=== PATIENT | female | born 1990 | race Asian ===

== ENCOUNTER 2022-11-23 18:35 | Emergency (ER) | payer OTHER ==
--- NOTE | 2022-11-23 22:35 | ED Physician Documentation ---
History of Present Illness - Stated complaint Stated Complaint: INGROWN TOE NAIL - Chief complaint Chief Complaint: General - History obtained from History obtained from: Patient - Additonal information Additional information: HPI from patient. Patient c/o right great toe pain, swelling, redness since yesterday, steadily worsening in severity of pain. Pain is worse with weight-bearing. No ameliorati ng factors. Denies h/o similar symptoms. Denies recent injury. Review of Systems Constitutional: denies: Fever Musculoskeletal: reports: Extremity pain, Extremity swelling, Pain with weight bearing PD PAST MEDICAL HISTORY - Past Medical History Past Medical History: No - Present Medications Home Medications: Ambulatory Orders Medication Instructions Recorded Confirmed HYDROcod/ACETAM 5/325 [[place]ag[place] 5/325] 1 - 2 tablet PO Q6H PRN #14 tablet 11/24/22 clindamycin HCL [Clindamycin HCl] 300 mg PO QID #28 cap 11/24/22 - Allergies Allergies/Adverse Reactions: Allergies Allergy/AdvReac Type Severity Reaction Status Date / Time No Known Drug Allergies Allergy Verified 11/23/22 18:48 PD ED PE NORMAL - Vitals Vital signs reviewed: Yes - General General: Alert and oriented X 3, No acute distress, Well developed/nourished PD ED PE EXPANDED - Extremities Feet visual: 1 - swelling (erythema, swelling, tenderness), tenderness Results - Vitals Vitals: Oxygen O2 Source Room air Procedures - Regional nerve block - Minor Nerve block site: Digital - note digit(s) (right great toe) Right / left: Right Nerve block anesthesia: Lidocaine 1%, Marcaine 0.5%, Other (1:1 mixture) Nerve block aftercare: Excellent anesthesia, Patient tolerated well, No complications PD Medical Decision Making - ED course Complexity details: considered differential, d/w patient ED course: presents with right great toe paronychia with focal swelling and blanching s/o purulence. After digital block (as above, procedure note), the lateral nail fold was able to be elevated away from the nail. I then made small stab-incision into area of fluctuance with #11 blade with scant purulosanguinous return. The distal edge/corner of the nail does not appear to be ingrown and thus no nail excision undertaken (also considering the lateral nail fold is able to be lifted with a plastic curette without difficulty now that the toe is numb). Patient is given clindamycin and e-prescribed one week course of same; also given take-home pack of vicodin and e-prescribed this medication, as well. Departure - Departure Disposition: 01 Home, Self Care Clinical Impression: Paronychia Condition: Good Instructions: ED Toenail Ingrown Infec Abx Onl, ED Fingernail Infec Prescriptions: clindamycin HCL [Clindamycin HCl] 300 mg PO QID #28 cap HYDROcod/ACETAM 5/325 [[place]ag[place] 5/325] 1 - 2 tablet PO Q6H PRN #14 tablet PRN Reason: Pain Comments: You given the first dose of an antibiotic (clindamycin) in the emergency department, and I have electronically submitted a prescription for a 1-week course of this antibiotic to the [facility] pharmacy in [place]. You are also given Vicodin (opiate/narcotic pain medication) in the emergency department, and I have also prescribed this medication to the same pharmacy. Follow-up with your primary care provider; if can be arranged, reevaluation within the next 48 hours would be ideal. I am prescribing a short course of narcotic pain medication for you. These are potentially dangerous and addictive medications that should be used carefully. These medications may constipate you. Take an alcr-zql-yhsimdf stool softener (docusate) twice daily with plenty of water while taking these medications. If you go 24 hours without a bowel movement, take [id number] miralax, per package instructions. Do not drink or drive while taking these medications. If you received narcotic or sedating medications while in the emergency department, do not drive for 24 hours. Store this medication in a safe, secure place and out of reach of children. It is a violation of federal law to give or sell this medication to another p erson or to use in a manner other than prescribed. The ED will not refill narcotic prescriptions, including prescriptions lost or stolen. To dispose of unwanted medications: 1. [facility] [address] [place] has a medication drop box. They accept prescription medications (in pill form) Tuesday through Tuesday 9:00 a.m. to 5:00 p.m. 2. [facility] [employer] accepts prescription medications (in pill form only) for disposal year round. Call for more information. 3. Contact the [facility] for the next [facility] sponsored prescription drug collection event. , [phone], or [phone]; Forms: PCP List, Activity restrictions Discharge Date/Time: 11/24/22 01:16
[2022-11-23 22:38] VITALS: O2SAT 98
[2022-11-23] MEDS ORDERED: lidocaine 1% 20 ML MDV SUBQ ONE (22:48)
[2022-11-23] MEDS ORDERED: BUPIVACAINE 0.5% PF 10 ML VIAL SUBQ STA (22:49)
[2022-11-24] MEDS ORDERED: CLINDAMYCIN 150 MG CAPSULE PO STA (00:35)
[2022-11-24] MEDS ORDERED: HYDROcod/ACET 5/325 Prepack 4 PO STA (00:35)
[2022-11-24 00:49] VITALS: BP 114/98
== END 2022-11-24 01:16 | disposition home or self-care (01) ==
LOC: ED 18:35
DX: L03.031 Cellulitis of right toe (principal)
CPT/HCPCS: 26010; 99282; 99283; A9270